=== PATIENT | female | born 1985 | race American Indian/Alaskan Native ===

== ENCOUNTER 2019-08-23 11:42 | Emergency (ER) | payer OTHER ==
[2019-08-23 12:05] VITALS: BP 102/60
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
--- NOTE | 2019-08-23 12:50 | XRay Report ---
XR spine lumbosacral 2-3V INDICATION / CLINICAL INFORMATION: low back pain. COMPARISON: None available. FINDINGS: BONES/JOINT(S): No acute fracture or subluxation. No significant degenerative changes. SOFT TISSUES: No significant abnormality. ADDITIONAL FINDINGS: None. Signer Name: Bigg Rose MD Signed: 08/23/2019 12:46 PM Workstation Name: [id number]
== END 2019-08-23 12:40 | disposition left against medical advice (07) ==
LOC: ED 11:42
DX: M54.9 Dorsalgia, unspecified (principal); Z53.21 Procedure and treatment not carried out due to patient leaving prior to being seen by health care provider
CPT/HCPCS: 72100

== ENCOUNTER 2020-03-30 05:11 | Emergency (ER) | payer SELFPAY | END 2020-03-30 08:22 | disposition left against medical advice (07) | LOC: ED 05:11 | DX: R10.9 Unspecified abdominal pain (principal); Z53.21 Procedure and treatment not carried out due to patient leaving prior to being seen by health care provider ==